=== PATIENT | female | born 1960 | race African-American/Black ===

== ENCOUNTER 2018-07-17 16:31 | Emergency (ER) | payer OTHER ==
[~2018-07-17] VITALS: Ht 167.6 cm; Wt 123.0 kg
[2018-07-17] MEDS ORDERED: IBUPROFEN 800MG TABLET PO ONE (17:15)
[2018-07-17] MEDS ORDERED: HYDROCODONE/ACETAMINOPHEN 5/325MG TABLET PO ONE (18:15)
[2018-07-17 19:11] VITALS: BP 177/113
== END 2018-07-17 19:27 | disposition home or self-care (01) ==
LOC: ER 16:31
DX: M62.838 Other muscle spasm (principal); M79.642 Pain in left hand; I10 Essential (primary) hypertension; V49.88XA Car occupant (driver) (passenger) injured in other specified transport accidents, initial encounter; Y93.89 Activity, other specified; Y92.89 Other specified places as the place of occurrence of the external cause; Y99.8 Other external cause status
CPT/HCPCS: 29125; 72070; 73030; 73130; 99284

== ENCOUNTER 2018-10-20 12:05 | Emergency (ER) | payer MEDICAID, OTHER ==
[~2018-10-20] VITALS: Ht 162.6 cm; Wt 85.0 kg
[2018-10-20 12:50] LABS: BASOPHILS % 0.9 % (0.0-2.0); HEMATOCRIT. 41.2 % (36.0-48.0); HEMOGLOBIN. 13.5 g/dL (12.0-16.0); LYMPHOCYTES % 22.3 % (20.0-50.0); MEAN CORPUSCULAR HEMOGLOBIN 26.8 pg (28.0-32.0); MEAN CORPUSCULAR VOLUME 81.7 fL (81.0-99.0); MEAN PLATELET VOLUME 6.7 fl (7.4-10.4); MONOCYTES % 7.2 % (2.0-8.0); NEUTROPHILS % 67.6 % (40.0-76.0); PLATELET 371 x1000/uL (130-400); RED BLOOD CELL COUNT 5.05 mill/uL (4.2-5.4)
[2018-10-20 12:57] LABS: CHLORIDE 104 mEq/L (98-107)
[2018-10-20] MEDS ORDERED: KETOROLAC 15MG/ML VIAL IV ONE (13:30)
[2018-10-20 14:46] LABS: CLARITY URINE CLOUDY (CLEAR); COLOR URINE DARK YELLOW (YELLOW); KETONES URINE NEGATIVE (NEGATIVE); LEUKOCYTE ESTERASE URINE NEGATIVE (NEGATIVE); NITRITE URINE NEGATIVE (NEGATIVE); OCCULT BLOOD URINE NEGATIVE (NEGATIVE); PH URINE 5.5 (4.5-8.0); PROTEIN URINE NEGATIVE (NEGATIVE); SPECIFIC GRAVITY URINE 1.033 (1.005-1.030); UROBILINOGEN URINE 0.2 E.U./dL (0.2-1.0)
[2018-10-20 17:20] VITALS: BP 149/80
== END 2018-10-20 17:29 | disposition home or self-care (01) ==
LOC: ER 12:13
DX: K92.1 Melena (principal); I11.0 Hypertensive heart disease with heart failure; I50.9 Heart failure, unspecified; Z90.49 Acquired absence of other specified parts of digestive tract; Z90.710 Acquired absence of both cervix and uterus; Z98.890 Other specified postprocedural states; Z96.659 Presence of unspecified artificial knee joint
CPT/HCPCS: 36415; 71045; 74176; 80053; 81003; 83605; 84484; 85025; 85610; 93005; 96374; 99284; J1885

== ENCOUNTER 2018-12-05 03:34 | Inpatient (IN) | payer OTHER ==
[~2018-12-05] VITALS: Ht 167.6 cm; Wt 138.3 kg
[2018-12-05] MEDS ORDERED: MORPHINE SULFATE 4 MG/ML CPJ (NOT FOR IM USE) IV STA (03:56)
[2018-12-05] MEDS ORDERED: ONDANSETRON HCL 4MG/2ML INJ IV STA (03:56)
[2018-12-05] MEDS ORDERED: ASPIRIN 81MG TABLET PO ONE (04:00)
[2018-12-05 04:39] LABS: BASOPHILS % 1.2 % (0.0-2.0); EOSINOPHILS % 0.5 % (0.0-5.0); HEMATOCRIT. 40.3 % (36.0-48.0); HEMOGLOBIN. 13.1 g/dL (12.0-16.0); LYMPHOCYTES % 16.7 % (20.0-50.0); MEAN CORPUSCULAR HEMOGLOBIN 26.4 pg (28.0-32.0); MEAN CORPUSCULAR VOLUME 81.2 fL (81.0-99.0); MONOCYTES % 6.6 % (2.0-8.0); PLATELET 429 x1000/uL (130-400); RED BLOOD CELL COUNT 4.96 mill/uL (4.2-5.4)
[2018-12-05] MEDS: NITROGLYCERIN 0.4MG TABLET SL SL PRN ×2 (04:41→08:14)
[2018-12-05 04:51] LABS: CHLORIDE 109 mEq/L (98-107)
[2018-12-05] MEDS ORDERED: ENOXAPARIN 150MG/ML SYR SUBCUT NR (06:30)
[2018-12-05 11:00] VITALS: BP 125/63
[2018-12-05] MEDS ORDERED: NA PHOS,M-B/NA PHOS,DI-BA ENEMA 118ML PR PRN (11:00)
[2018-12-05] MEDS ORDERED: GUAIFENESIN 200MG/10ML SUGAR FREE UDC PO PRN (11:00)
[2018-12-05] MEDS ORDERED: ONDANSETRON HCL 4MG/2ML INJ IV PRN (11:00)
[2018-12-05] MEDS ORDERED: IPRATROPIUM/ALBUTEROL 0.5-3(2.5)MG/3ML NEB INH PRN (11:00)
[2018-12-05] MEDS ORDERED: ACETAMINOPHEN 650MG SUPP PR PRN (11:00)
[2018-12-05] MEDS ORDERED: DOCUSATE SODIUM 100MG CAPSULE PO PRN (11:00)
[2018-12-05] MEDS ORDERED: ACETAMINOPHEN 325MG TABLET PO PRN (11:00)
[2018-12-05] MEDS ORDERED: LORAZEPAM 0.5MG TABLET PO PRN (11:00)
[2018-12-05] MEDS: HYDROCODONE/ACETAMINOPHEN 5/325MG TABLET PO PRN ×3 (11:28→22:23)
[2018-12-05 11:58] VITALS: BP 134/82
[2018-12-05] MEDS: AMLODIPINE 5MG TABLET PO SCH ×2 (15:30→21:52)
[2018-12-05 16:00] VITALS: BP 137/70
[2018-12-05 16:10] LABS: CREATINE KINASE 81 IU/L (26-192)
[2018-12-05 16:11] LABS: CREATINE KINASE MB FRACTION 1.7 ng/mL (0.5-3.6)
[2018-12-05 20:00] VITALS: BP 146/96
[2018-12-05] MEDS ORDERED: CARVEDILOL 3.125 MG TABLET PO SCH (21:00)
[2018-12-05] MEDS: ENOXAPARIN 40MG/0.4ML SYR SUBCUT SCH ×2 (21:46→21:47)
[2018-12-05] MEDS: METRONIDAZOLE 500MG TABLET PO SCH (21:47)
[2018-12-06] VITALS: BP 140/68
[2018-12-06] MEDS ORDERED: DEXT 5%/0.45% NACL 1000ML 1,000 ML IV SCH
[2018-12-06 00:22] LABS: CREATINE KINASE 75 IU/L (26-192)
[2018-12-06 00:23] LABS: CREATINE KINASE MB FRACTION 1.4 ng/mL (0.5-3.6)
[2018-12-06 04:00] VITALS: BP 105/58
[2018-12-06] MEDS: METRONIDAZOLE 500MG TABLET PO SCH ×3 (06:16→21:25)
[2018-12-06] MEDS: HYDROCODONE/ACETAMINOPHEN 5/325MG TABLET PO PRN ×2 (06:18→21:26)
[2018-12-06 06:49] LABS: EOSINOPHILS % 1.8 % (0.0-5.0); HEMOGLOBIN. 11.5 g/dL (12.0-16.0); LYMPHOCYTES % 35.7 % (20.0-50.0); MEAN CORPUSCULAR HEMOGLOBIN 26.3 pg (28.0-32.0); MEAN PLATELET VOLUME 6.8 fl (7.4-10.4); MONOCYTES % 8.1 % (2.0-8.0); NEUTROPHILS % 53.4 % (40.0-76.0); PLATELET 312 x1000/uL (130-400); RED CELL DISTRIBUTION WIDTH 13.9 % (11.6-14.6)
[2018-12-06 06:56] LABS: PROTHROMBIN TIME 10.2 sec (9.1-11.1)
[2018-12-06 06:59] LABS: CHLORIDE 108 mEq/L (98-107)
[2018-12-06 07:06] LABS: LDL CHOLESTEROL 75 mg/dL (5-100)
[2018-12-06 07:07] LABS: HDL CHOLESTEROL 37 mg/dL (40-59)
[2018-12-06 07:08] LABS: T4 FREE 1.12 ng/dL (0.76-1.46)
[2018-12-06 08:00] VITALS: BP 104/57
[2018-12-06] MEDS: ASPIRIN 81MG EC TABLET PO SCH (09:00)
[2018-12-06] MEDS: AMLODIPINE 5MG TABLET PO SCH ×2 (09:00→21:25)
[2018-12-06 12:00] VITALS: BP 146/83
[2018-12-06 16:00] VITALS: BP 140/80
[2018-12-06 16:41] LABS: CLARITY URINE CLEAR (CLEAR); COLOR URINE YELLOW (YELLOW); KETONES URINE NEGATIVE (NEGATIVE); LEUKOCYTE ESTERASE URINE NEGATIVE (NEGATIVE); NITRITE URINE NEGATIVE (NEGATIVE); OCCULT BLOOD URINE 3+ (NEGATIVE); PH URINE 5.5 (4.5-8.0); PROTEIN URINE NEGATIVE (NEGATIVE); SPECIFIC GRAVITY URINE 1.007 (1.005-1.030); UROBILINOGEN URINE 0.2 E.U./dL (0.2-1.0)
[2018-12-06 16:58] LABS: *BENZODIAZEPINES SCREEN URINE NEGATIVE (NEGATIVE)
[2018-12-06 17:00] LABS: *AMPHETAMINES SCREEN URINE NEGATIVE (NEGATIVE); *COCAINE SCREEN URINE NEGATIVE (NEGATIVE); CANNABINOID URINE SCREEN PRESUMTIVE POSITIVE (NEGATIVE); METHADONE URINE SCREEN NEGATIVE (NEGATIVE); OPIATES URINE SCREEN NEGATIVE (NEGATIVE); PHENCYCLIDINE URINE SCREEN NEGATIVE (NEGATIVE)
[2018-12-06 17:02] LABS: *BARBITURATES SCREEN URINE NEGATIVE (NEGATIVE)
[2018-12-06 20:00] VITALS: BP 143/98
[2018-12-06] MEDS: ENOXAPARIN 40MG/0.4ML SYR SUBCUT SCH (21:25)
[2018-12-07] VITALS: BP 132/68
[2018-12-07 04:00] VITALS: BP 114/65
[2018-12-07] MEDS: METRONIDAZOLE 500MG TABLET PO SCH (06:17)
[2018-12-07 08:00] VITALS: BP 137/74
[2018-12-07] MEDS: ASPIRIN 81MG EC TABLET PO SCH (08:45)
[2018-12-07] MEDS: HYDROCODONE/ACETAMINOPHEN 5/325MG TABLET PO PRN (08:46)
[2018-12-07] MEDS: AMLODIPINE 5MG TABLET PO SCH (08:47)
[2018-12-07] MEDS: ENOXAPARIN 40MG/0.4ML SYR SUBCUT SCH (08:48)
[2018-12-07 09:11] VITALS: BP 137/74
== END 2018-12-07 09:40 | DRG 194 ==
LOC: ER 04:01 → 5WST 05:31 → EDBEDREQTM 05:36 → EDBEDREQ 05:36 → ENRESERV 09:51
PROVIDERS: ADMIT Ophthalmology; ATTEND Ophthalmology
DX: I11.0 Hypertensive heart disease with heart failure (principal); E86.0 Dehydration; Z68.42 Body mass index [BMI] 45.0-49.9, adult; M94.0 Chondrocostal junction syndrome [Tietze]; I50.33 Acute on chronic diastolic (congestive) heart failure; D72.829 Elevated white blood cell count, unspecified; E66.9 Obesity, unspecified; E78.00 Pure hypercholesterolemia, unspecified; E78.5 Hyperlipidemia, unspecified; Z96.652 Presence of left artificial knee joint; F14.10 Cocaine abuse, uncomplicated; K52.9 Noninfective gastroenteritis and colitis, unspecified; I25.10 Atherosclerotic heart disease of native coronary artery without angina pectoris; I25.2 Old myocardial infarction; Z59.0 Homelessness; Z82.49 Family history of ischemic heart disease and other diseases of the circulatory system; Z86.73 Personal history of transient ischemic attack (TIA), and cerebral infarction without residual deficits; Z90.710 Acquired absence of both cervix and uterus; Z91.19 Patient's noncompliance with other medical treatment and regimen
CPT/HCPCS: 36415; 70551; 71045; 80061; 80305; 82550; 82553; 83880; 84439; 84443; 84484; 93005; 93970; 96372; 96374; 96375; 99285; J1650; J2270; J2405; J3490

== ENCOUNTER 2022-06-05 11:07 | Inpatient (IN) | payer OTHER ==
[~2022-06-05] VITALS: Ht 167.6 cm; Wt 104.1 kg
[2022-06-05 18:04] LABS: BASOPHILS % 0.8 % (0.0-2.0); EOSINOPHILS % 1.2 % (0.0-5.0); HEMATOCRIT. 44.4 % (36.0-48.0); HEMOGLOBIN. 14.4 g/dL (12.0-16.0); LYMPHOCYTES % 23.7 % (20.0-50.0); MEAN CORPUSCULAR HEMOGLOBIN 26.5 pg (28.0-32.0); MEAN CORPUSCULAR VOLUME 81.8 fL (81.0-99.0); MEAN PLATELET VOLUME 7.2 fl (7.4-10.4); MONOCYTES % 8.5 % (2.0-8.0); NEUTROPHILS % 65.8 % (40.0-76.0); PLATELET 351 x1000/uL (130-400); RED BLOOD CELL COUNT 5.43 mill/uL (4.2-5.4); RED CELL DISTRIBUTION WIDTH 13.9 % (11.6-14.6)
[2022-06-05 18:17] LABS: CHLORIDE 108 mEq/L (98-107)
[2022-06-05] MEDS ORDERED: ASPIRIN 325MG TABLET PO ONE (19:00)
[2022-06-06] MEDS ORDERED: HYDRALAZINE 20MG/ML VIAL IV ONE ×2 (00:45→08:30)
[2022-06-06] MEDS ORDERED: LABETALOL 5MG/ML SYR 20 MG/4 ML SYRINGE IV ONE (10:30)
[2022-06-06] MEDS: LOSARTAN POTASSIUM 100 MG TABLET PO SCH (11:25)
[2022-06-06] MEDS: CLONIDINE 0.1MG TABLET PO PRN (13:56)
[2022-06-06] MEDS: AMLODIPINE 10MG TABLET PO SCH (14:15)
[2022-06-06] MEDS ORDERED: CLONIDINE 0.2MG TABLET PO NR (14:15)
[2022-06-06 14:37] LABS: CLARITY URINE CLEAR (CLEAR); COLOR URINE YELLOW (YELLOW); KETONES URINE NEGATIVE (NEGATIVE); LEUKOCYTE ESTERASE URINE NEGATIVE (NEGATIVE); NITRITE URINE NEGATIVE (NEGATIVE); OCCULT BLOOD URINE NEGATIVE (NEGATIVE); PROTEIN URINE NEGATIVE (NEGATIVE); SPECIFIC GRAVITY URINE 1.007 (1.005-1.030); UROBILINOGEN URINE 0.2 E.U./dL (0.2-1.0)
[2022-06-06] MEDS: ASPIRIN 81MG EC TABLET PO SCH (15:00)
[2022-06-06 15:14] LABS: *AMPHETAMINES SCREEN URINE NEGATIVE (NEGATIVE); *BARBITURATES SCREEN URINE NEGATIVE (NEGATIVE); *BENZODIAZEPINES SCREEN URINE NEGATIVE (NEGATIVE); *COCAINE SCREEN URINE PRESUMTIVE POSITIVE (NEGATIVE); CANNABINOID URINE SCREEN PRESUMTIVE POSITIVE (NEGATIVE); METHADONE URINE SCREEN NEGATIVE (NEGATIVE); OPIATES URINE SCREEN NEGATIVE (NEGATIVE); PHENCYCLIDINE URINE SCREEN NEGATIVE (NEGATIVE)
[2022-06-06 16:00] VITALS: BP 162/95
[2022-06-06] MEDS: HYDRALAZINE 20MG/ML VIAL IV PRN (16:52)
[2022-06-06 17:02] VITALS: BP 162/95
[2022-06-06 18:03] VITALS: BP 156/81
[2022-06-06 22:00] VITALS: BP 146/82
[2022-06-07] VITALS (11 sets, daily range): BP systolic 137–189; BP diastolic 69–102
[2022-06-07] MEDS: CLONIDINE 0.1MG TABLET PO PRN ×2 (02:03→15:46)
[2022-06-07 06:16] LABS: CHLORIDE 109 mEq/L (98-107)
[2022-06-07 06:31] LABS: BASOPHILS % 0.8 % (0.0-2.0); EOSINOPHILS % 1.9 % (0.0-5.0); HEMATOCRIT. 40.4 % (36.0-48.0); HEMOGLOBIN. 13.2 g/dL (12.0-16.0); LYMPHOCYTES % 28.7 % (20.0-50.0); MEAN CORPUSCULAR HEMOGLOBIN 26.3 pg (28.0-32.0); MEAN CORPUSCULAR VOLUME 80.5 fL (81.0-99.0); MEAN PLATELET VOLUME 7.3 fl (7.4-10.4); MONOCYTES % 8.7 % (2.0-8.0); NEUTROPHILS % 59.9 % (40.0-76.0); PLATELET 329 x1000/uL (130-400); RED BLOOD CELL COUNT 5.02 mill/uL (4.2-5.4)
[2022-06-07] MEDS: ASPIRIN 81MG EC TABLET PO SCH (09:47)
[2022-06-07] MEDS: AMLODIPINE 10MG TABLET PO SCH (09:47)
[2022-06-07] MEDS: LOSARTAN POTASSIUM 100 MG TABLET PO SCH (09:47)
[2022-06-07] MEDS ORDERED: ACETAMINOPHEN 325MG TABLET PO PRN (12:30)
[2022-06-08] VITALS (13 sets, daily range): BP systolic 127–207; BP diastolic 64–115
[2022-06-08] MEDS: CLONIDINE 0.1MG TABLET PO PRN (04:46)
[2022-06-08] MEDS: LOSARTAN POTASSIUM 100 MG TABLET PO SCH (08:24)
[2022-06-08] MEDS: ASPIRIN 81MG EC TABLET PO SCH (08:24)
[2022-06-08] MEDS: AMLODIPINE 10MG TABLET PO SCH (08:28)
[2022-06-08] MEDS ORDERED: HYDRALAZINE HCL 25MG TABLET PO SCH (10:45)
[2022-06-08] MEDS ORDERED: HYDR-4135 MT (11:48)
[2022-06-08] MEDS ORDERED: LOSA100T3 PO (11:48)
[2022-06-08] MEDS: HYDRALAZINE 20MG/ML VIAL IV PRN (13:15)
[2022-06-08] MEDS ORDERED: ATORVASTATIN CALCIUM 40MG TABLET PO SCH (21:00)
== END 2022-06-08 14:30 | disposition home or self-care (01) | DRG 199 ==
LOC: ER 11:07 → 5EST 06-06 10:25
PROVIDERS: ADMIT Internal Medicine; ATTEND Internal Medicine
DX: I16.0 Hypertensive urgency (principal); I21.4 Non-ST elevation (NSTEMI) myocardial infarction; I50.9 Heart failure, unspecified; I11.0 Hypertensive heart disease with heart failure; I08.2 Rheumatic disorders of both aortic and tricuspid valves; R07.89 Other chest pain; I25.10 Atherosclerotic heart disease of native coronary artery without angina pectoris; E66.9 Obesity, unspecified; E78.5 Hyperlipidemia, unspecified; F17.200 Nicotine dependence, unspecified, uncomplicated; Z20.822 Contact with and (suspected) exposure to COVID-19; Z90.710 Acquired absence of both cervix and uterus; Z59.00 Homelessness unspecified; Z68.37 Body mass index [BMI] 37.0-37.9, adult; Z90.49 Acquired absence of other specified parts of digestive tract
CPT/HCPCS: 36415; 71045; 80048; 80053; 80061; 80305; 81003; 83880; 84484; 85025; 87426; 93005; 93306; 99285; J0360; J3490